=== PATIENT | male | born 1950 | race Caucasian/White ===

== ENCOUNTER 2021-08-03 14:01 | Emergency (ER) | payer MEDICARE, BC ==
[~2021-08-03] VITALS: Ht 185.4 cm; Wt 81.8 kg
[2021-08-03 14:36] VITALS: BP 129/70
[2021-08-03 17:12] LABS: BASOPHILS # (AUTO) 0.1 X10'3 (0-0.2); BASOPHILS % (AUTO) 0.5 % (0-1); EOSINOPHILS % (AUTO) 0.4 % (0-6); HEMATOCRIT 35.1 % (42.0-52.0); HEMOGLOBIN 11.7 g/dl (14.0-17.9); LYMPHOCYTES # (AUTO) 0.8 X10'3 (1.1-4.8); LYMPHOCYTES % (AUTO) 7.4 % (21-51); MEAN CORPUSCULAR HGB CONC 33.3 g/dL (33.0-36.5); MEAN CORPUSCULAR VOLUME 84.1 FL (78-98); MEAN PLATELET VOLUME 7.8 FL (7.4-10.4); MONOCYTES # (AUTO) 0.5 X10'3 (0-0.9); MONOCYTES % (AUTO) 4.8 % (2-12); NEUTROPHILS # (AUTO) 9.3 X10'3 (1.8-7.7); NEUTROPHILS % (AUTO) 86.9 % (42-75); PLATELET COUNT 371 X10'3 (140-440); RED BLOOD COUNT 4.17 X10'6 (4.70-6.10); RED CELL DISTRIBUTION WIDTH 16.7 % (11.5-14.5); WHITE BLOOD COUNT 10.7 X10'3 (4.5-11.0)
[2021-08-03 17:28] LABS: ALANINE AMINOTRANSFERASE 29 U/L (12-78); ALBUMIN 2.7 G/DL (3.4-5.0); ALBUMIN/GLOBULIN RATIO 0.6 (1.1-1.5); ALKALINE PHOSPHATASE 341 IU/L (46-116); ANION GAP 13 (8-16); ASPARTATE AMINO TRANSFERASE 70 U/L (10-37); BILIRUBIN,TOTAL 1.5 MG/DL (0.1-1.0); BLOOD UREA NITROGEN 25 MG/DL (7-18); BUN/CREATININE RATIO 17.7 (5.4-32.0); CALCIUM 9.9 MG/DL (8.5-10.1); CHLORIDE 98 MMOL/L (99-107); CREATININE 1.41 MG/DL (0.60-1.10); GLUCOSE 179 MG/DL (70-104); POTASSIUM 4.8 MMOL/L (3.5-5.1); SODIUM 133 MMOL/L (135-145); TOTAL CARBON DIOXIDE 21.6 MMOL/L (24-32); TOTAL PROTEIN 7.6 G/DL (6.4-8.2); eGFR 50 ML/MIN
[2021-08-03 17:39] LABS: MAGNESIUM 2.2 MG/DL (1.5-2.4)
[2021-08-03] MEDS ORDERED: iohexol 300mg/ml 100ml inj. ONE (17:41)
[2021-08-03] MEDS ORDERED: MESSAGE TO NURSING PO ONE (18:45)
[2021-08-03] MEDS ORDERED: HYDROcodone/acetaminophen 5mg/325mg tablet PO ONE (18:45)
[2021-08-03] MEDS ORDERED: ondansetron 4mg rapidly disintigrating tab PO ONE (18:45)
--- NOTE | 2021-08-03 19:02 | NUR ---
CORY ANNABEL SISTER IS THE ONLY FAMILY ALLOWED INFORMATION.
[2021-08-03] MEDS ORDERED: HYDR-3965 PO (19:08)
[2021-08-03] MEDS ORDERED: ONDA4TAB6 PO (19:08)
== END 2021-08-03 19:28 | disposition home or self-care (01) ==
LOC: ER 14:01
DX: R53.1 Weakness (principal); R07.89 Other chest pain; M54.50 Low back pain, unspecified; E78.00 Pure hypercholesterolemia, unspecified; E11.9 Type 2 diabetes mellitus without complications; F17.200 Nicotine dependence, unspecified, uncomplicated; Z72.89 Other problems related to lifestyle; E06.3 Autoimmune thyroiditis; Z79.899 Other long term (current) drug therapy
CPT/HCPCS: 36415; 71046; 71260; 74177; 80053; 83735; 83880; 84145; 84443; 84484; 85025; 85610; 85651; 86140; 99285; Q9967; 93005